=== PATIENT | male | born 1995 | race Two or more races ===

== ENCOUNTER 2020-08-14 22:11 | Inpatient (IN) | payer OTHER ==
[2020-08-14] MEDS: SODIUM CHLORIDE 1,905 ML IV ONE (22:50)
[2020-08-14 23:41] LABS: BASO % 0.4 % (0-2.0); EOS % 1.3 % (0-4.5); HEMOGLOBIN 15.3 GM/dL (11.7-16.9); LYMPH % 27.1 % (8-40); MCH 29.1 pg (25.7-33.7); MCHC 31.9 g/dl (32.0-35.9); MEAN CELL VOLUME 91.2 fl (80-96); MEAN PLT VOLUME 12.8 fl (7.5-11.1); NEUT % 61.2 % (42.8-82.8); PLATELET COUNT 235 K/MM3 (134-434); RBC 5.26 M/mm3 (4.00-5.60); RDW 14.3 % (11.9-15.9); WHITE BLOOD COUNT 11.4 K/mm3 (4.0-10.0)
[2020-08-14 23:45] LABS: VENOUS BASE EXCESS -0.7 mmol/L (-2-2); VENOUS O2 SATURATION 94.1 % (70-80); VENOUS PCO2 36.1 mmHg (38-52); VENOUS PH 7.425 (7.310-7.410)
[2020-08-14] MEDS ORDERED: LACTATED RINGERS SOLUTION 1000 ML INFUS.BAG IV ONE (23:45)
[2020-08-15 00:04] LABS: CHLORIDE 128 mmol/L (98-107); POTASSIUM 4.1 mmol/L (3.5-5.1)
[2020-08-15 00:06] LABS: ACTIVATED PTT 41.7 SECONDS (25.2-36.5); CALCIUM 9.7 mg/dL (8.5-10.1); INR 1.05 (0.83-1.09); PROTHROMBIN TIME (PATIENT) 12.9 SEC (9.7-13.0)
[2020-08-15 00:07] LABS: CO2 24 mmol/L (21-32); GLUCOSE,RANDOM 100 mg/dL (74-106)
[2020-08-15 00:10] LABS: CREATININE 1.3 mg/dL (0.55-1.3); SGOT/AST 41 U/L (15-37); SGPT/ALT 71 U/L (13-61)
[2020-08-15 00:11] LABS: BILIRUBIN,TOTAL 0.5 mg/dL (0.2-1); TOT PROT 8.7 g/dl (6.4-8.2)
[2020-08-15 00:12] LABS: ALK PHOS 137 U/L (45-117)
[2020-08-15 00:29] LABS: ANION GAP 9 MMOL/L (8-16)
[2020-08-15 00:40] LABS: SODIUM 161 mmol/L (136-145)
[2020-08-15] MEDS: SODIUM CHLORIDE 1,905 ML IV ONE (01:50)
[2020-08-15] MEDS ORDERED: LACTATED RINGERS SOLUTION 1,000 ML/1,000 ML INFUS.BAG IV SCH (03:15)
[2020-08-15] MEDS ORDERED: SODIUM CHLORIDE 0.45% 1,000 ML IV SCH (04:30)
[2020-08-15] MEDS ORDERED: clonazePAM 0.5 MG TABLET GT PRN (04:48)
[2020-08-15 07:42] LABS: POTASSIUM 3.8 mmol/L (3.5-5.1)
[2020-08-15 08:05] LABS: CALCIUM 9.6 mg/dL (8.5-10.1)
[2020-08-15 08:06] LABS: BLOOD UREA NITROGEN 60.7 mg/dL (7-18)
[2020-08-15 08:09] LABS: CREATININE 1.1 mg/dL (0.55-1.3)
[2020-08-15] MEDS ORDERED: BISACODYL 10 MG SUPP.RECT PR ONE (09:03)
[2020-08-15 09:57] LABS: PH,URINE >= 9.0 (5.0-8.0); URINE APPEARANCE Slightly Cloudy; URINE BILIRUBIN Negative (NEGATIVE); URINE COLOR Yellow; URINE GLUCOSE (UA) Negative (NEGATIVE); URINE KETONE Negative (NEGATIVE); URINE LEUK ESTERASE 3+ (NEGATIVE); URINE NITRITE Positive (NEGATIVE); URINE PROTEIN 3+ (NEGATIVE); URINE UROBILINOGEN 0.2 mg/dL (0.2-1.0)
[2020-08-15 10:11] LABS: EPI CELLS 18.1 /uL (0-25.1); HYALINE CASTS 1.15 /uL (0-3.1); URINE BACTERIA 243.7 /uL (0-1359); URINE RBC 23.8 /uL (0-23.9); URINE WBC 5.2 /uL (0-25.8)
[2020-08-15] MEDS ORDERED: DEXTROSE 5%-WATER - 1,000 ML IV SCH (11:00)
[2020-08-15] MEDS ORDERED: levETIRAcetam 500 MG/5 ML INJECTION VIAL IVPB ONE (11:05)
[2020-08-15] MEDS ORDERED: amLODIPine BESYLATE 5 MG TABLET (FP) ONE (11:06)
[2020-08-15] MEDS ORDERED: METOPROLOL TARTRATE 25 MG TABLET (FP) ONE (11:06)
[2020-08-15] MEDS ORDERED: BISACODYL 10 MG SUPP.RECT ONE (11:06)
[2020-08-15] MEDS: levETIRAcetam 500 MG/5 ML ORAL SOLUTION (UNIT-DOSE CUPS) PEG SCH ×2 (11:28→21:19)
[2020-08-15] MEDS: METOPROLOL TARTRATE 25 MG TABLET (FP) PEG SCH ×2 (11:28→21:19)
[2020-08-15] MEDS: amLODIPine BESYLATE 5 MG TABLET (FP) GT SCH (11:29)
[2020-08-15] MEDS ORDERED: PEG 3350/NA SULF BICARB CL/KCL 4000 ML SOLN.RECON GT ONE (13:00)
[2020-08-15] MEDS: SENNOSIDES 8.6MG TABLET (FP) PO SCH (21:19)
[2020-08-16] MEDS: DEXTROSE 5%-WATER - 1,000 ML IV SCH ×2 (01:53→22:50)
[2020-08-16 07:39] LABS: BASO % 0.3 % (0-2.0); EOS % 3.4 % (0-4.5); HEMATOCRIT 39.5 % (35.4-49); HEMOGLOBIN 13.1 GM/dL (11.7-16.9); LYMPH % 23.3 % (8-40); MCH 29.7 pg (25.7-33.7); MCHC 33.1 g/dl (32.0-35.9); MEAN CELL VOLUME 89.7 fl (80-96); MEAN PLT VOLUME 12.5 fl (7.5-11.1); MONO % 6.5 % (3.8-10.2); NEUT % 66.5 % (42.8-82.8); PLATELET COUNT 168 K/MM3 (134-434); RDW 13.8 % (11.9-15.9); WHITE BLOOD COUNT 13.4 K/mm3 (4.0-10.0)
[2020-08-16 08:01] LABS: POTASSIUM 3.4 mmol/L (3.5-5.1)
[2020-08-16] MEDS ORDERED: PT OWN MED DRAWER 7, Y5N ONE ×3 (08:19→22:38)
[2020-08-16 08:29] LABS: ALBUMIN 3.4 g/dl (3.4-5.0); BILIRUBIN,TOTAL 1.4 mg/dL (0.2-1); BLOOD UREA NITROGEN 38.8 mg/dL (7-18); CALCIUM 8.8 mg/dL (8.5-10.1); CREATININE 0.9 mg/dL (0.55-1.3); MAGNESIUM 2.3 mg/dL (1.8-2.4); PHOSPHOROUS 3.1 mg/dL (2.5-4.9); TOT PROT 7.4 g/dl (6.4-8.2)
[2020-08-16] MEDS ORDERED: POTASSIUM CHLORIDE ORAL LIQUID 20 MEQ/15 ML GT ONE (08:36)
[2020-08-16] MEDS: amLODIPine BESYLATE 5 MG TABLET (FP) GT SCH (09:28)
[2020-08-16] MEDS: levETIRAcetam 500 MG/5 ML ORAL SOLUTION (UNIT-DOSE CUPS) PEG SCH ×2 (09:28→22:50)
[2020-08-16] MEDS: METOPROLOL TARTRATE 25 MG TABLET (FP) PEG SCH ×2 (09:28→22:50)
[2020-08-16] MEDS: SENNOSIDES 8.6MG TABLET (FP) PO SCH (22:49)
[2020-08-17 08:35] LABS: HEMATOCRIT 38.6 % (35.4-49); HEMOGLOBIN 13.2 GM/dL (11.7-16.9); MCH 29.6 pg (25.7-33.7); MCHC 34.2 g/dl (32.0-35.9); MEAN CELL VOLUME 86.5 fl (80-96); MEAN PLT VOLUME 12.2 fl (7.5-11.1); PLATELET COUNT 211 K/MM3 (134-434); RBC 4.46 M/mm3 (4.00-5.60); RDW 13.4 % (11.9-15.9); WHITE BLOOD COUNT 13.4 K/mm3 (4.0-10.0)
[2020-08-17 08:37] LABS: POTASSIUM 3.7 mmol/L (3.5-5.1)
[2020-08-17 08:44] LABS: CALCIUM 8.7 mg/dL (8.5-10.1)
[2020-08-17 08:45] LABS: BLOOD UREA NITROGEN 21.6 mg/dL (7-18)
[2020-08-17 08:48] LABS: CREATININE 0.7 mg/dL (0.55-1.3)
[2020-08-17] MEDS ORDERED: PT OWN MED DRAWER 7, Y5N ONE (09:30)
[2020-08-17] MEDS: amLODIPine BESYLATE 5 MG TABLET (FP) GT SCH (10:11)
[2020-08-17] MEDS: levETIRAcetam 500 MG/5 ML ORAL SOLUTION (UNIT-DOSE CUPS) PEG SCH ×2 (10:11→23:25)
[2020-08-17] MEDS: METOPROLOL TARTRATE 25 MG TABLET (FP) PEG SCH ×2 (10:11→22:34)
[2020-08-17] MEDS ORDERED: DEXTROSE 5%-WATER - 1,000 ML IV SCH (11:27)
[2020-08-17 15:19] LABS: EPI CELLS 12 /uL (0-25.1); HYALINE CASTS 0 /uL (0-3.1); URINE APPEARANCE CLEAR; URINE BACTERIA 8249 /uL (0-1359); URINE BILIRUBIN NEGATIVE (NEGATIVE); URINE COLOR YELLOW; URINE GLUCOSE (UA) NEGATIVE (NEGATIVE); URINE KETONE NEGATIVE (NEGATIVE); URINE LEUK ESTERASE 3+ (NEGATIVE); URINE NITRITE NEGATIVE (NEGATIVE); URINE PROTEIN NEGATIVE (NEGATIVE); URINE RBC 2 /uL (0-23.9); URINE WBC 21 /uL (0-25.8)
[2020-08-17] MEDS: SENNOSIDES 8.6MG TABLET (FP) PO SCH (22:34)
[2020-08-18] MEDS: DEXTROSE 5%-WATER - 1,000 ML IV SCH (05:47)
[2020-08-18 07:30] LABS: HEMATOCRIT 35.9 % (35.4-49); HEMOGLOBIN 12.4 GM/dL (11.7-16.9); MCH 29.8 pg (25.7-33.7); MCHC 34.5 g/dl (32.0-35.9); MEAN CELL VOLUME 86.2 fl (80-96); MEAN PLT VOLUME 12.6 fl (7.5-11.1); RBC 4.17 M/mm3 (4.00-5.60); RDW 13.6 % (11.9-15.9); WHITE BLOOD COUNT 10.7 K/mm3 (4.0-10.0)
[2020-08-18 07:58] LABS: ALBUMIN 3.1 g/dl (3.4-5.0); BLOOD UREA NITROGEN 19.8 mg/dL (7-18); CALCIUM 8.8 mg/dL (8.5-10.1)
[2020-08-18 08:02] LABS: CREATININE 0.7 mg/dL (0.55-1.3)
[2020-08-18 08:03] LABS: BILIRUBIN,TOTAL 0.6 mg/dL (0.2-1); TOT PROT 6.7 g/dl (6.4-8.2)
[2020-08-18] MEDS ORDERED: PT OWN MED DRAWER 7, Y5N ONE ×3 (09:54→21:49)
[2020-08-18 10:13] LABS: PLATELET COUNT 151 K/MM3 (134-434)
[2020-08-18] MEDS: levETIRAcetam 500 MG/5 ML ORAL SOLUTION (UNIT-DOSE CUPS) PEG SCH (11:30)
[2020-08-18] MEDS: ENOXAPARIN NA (PORCINE) 40 MG/0.4 ML DISP.SYRIN SQ SCH (11:30)
[2020-08-18] MEDS: METOPROLOL TARTRATE 25 MG TABLET (FP) PEG SCH ×2 (11:30→22:00)
[2020-08-18] MEDS: amLODIPine BESYLATE 5 MG TABLET (FP) GT SCH (11:30)
[2020-08-18] MEDS ORDERED: PATIENT'S OWN MEDICATION (NON-FORMULARY) (Senna Leaf Extract [Senna] 176 MG/5 ML Syrup) PO SCH (15:45)
[2020-08-18] MEDS ORDERED: AMPICILLIN NA/SULBACTAM NA 1.5 GM VIAL ONE ×2 (16:12→21:50)
[2020-08-18] MEDS ORDERED: SODIUM CHLORIDE 100 ML IVPB ONE ×2 (16:12→21:50)
[2020-08-18] MEDS: LACTULOSE 20 GM/30 ML UDC (FOR ORAL USE ONLY) GT SCH (17:31)
[2020-08-18] MEDS: AMPICILLIN NA/SULBACTAM NA 1.5 GM in SODIUM CHLORIDE 100 ML IVPB SCH ×2 (17:31→22:00)
[2020-08-18] MEDS: clonazePAM 0.5 MG TABLET GT SCH (22:00)
[2020-08-18] MEDS: Lacosamide 50 MG/5 ML ORAL SOLUTION UNIT CUPS GT SCH (22:00)
[2020-08-18] MEDS ORDERED: levETIRAcetam 500 MG/5 ML ORAL SOLUTION (UNIT-DOSE CUPS) PO SCH (22:00)
[2020-08-18] MEDS: NYSTATIN POWDER 100,000 UNITS/GM - 15 GM TOPICAL POWDER TP SCH (22:00)
[2020-08-18] MEDS: SENNOSIDES 8.8 MG/5 ML BULK BOTTLE GT SCH (22:00)
[2020-08-18] MEDS: FAMOTIDINE 40 MG/5 ML ORAL SUSPENSION NGT SCH (22:00)
[2020-08-18] MEDS: levETIRAcetam 500 MG/5 ML ORAL SOLUTION (UNIT-DOSE CUPS) PO SCH (22:00)
[2020-08-19] MEDS ORDERED: SODIUM CHLORIDE 100 ML IVPB ONE ×3 (01:56→13:22)
[2020-08-19] MEDS ORDERED: AMPICILLIN NA/SULBACTAM NA 1.5 GM VIAL ONE ×3 (01:56→13:21)
[2020-08-19] MEDS: AMPICILLIN NA/SULBACTAM NA 1.5 GM in SODIUM CHLORIDE 100 ML IVPB SCH ×3 (02:32→14:29)
[2020-08-19 08:48] LABS: BASO % 0.7 % (0-2.0); EOS % 4.8 % (0-4.5); HEMATOCRIT 40.9 % (35.4-49); LYMPH % 35.6 % (8-40); MCH 29.9 pg (25.7-33.7); MCHC 34.2 g/dl (32.0-35.9); MEAN CELL VOLUME 87.7 fl (80-96); MEAN PLT VOLUME 12.7 fl (7.5-11.1); MONO % 7.4 % (3.8-10.2); NEUT % 51.5 % (42.8-82.8); PLATELET COUNT 151 K/MM3 (134-434); RBC 4.67 M/mm3 (4.00-5.60); WHITE BLOOD COUNT 7.9 K/mm3 (4.0-10.0)
[2020-08-19 08:58] LABS: POTASSIUM 4.1 mmol/L (3.5-5.1)
[2020-08-19 09:13] LABS: BILIRUBIN,TOTAL 0.5 mg/dL (0.2-1)
[2020-08-19 09:18] LABS: CREATININE 0.7 mg/dL (0.55-1.3)
[2020-08-19 09:22] LABS: CALCIUM 9.2 mg/dL (8.5-10.1); MAGNESIUM 2.5 mg/dL (1.8-2.4)
[2020-08-19 09:25] LABS: ALBUMIN 3.5 g/dl (3.4-5.0); PHOSPHOROUS 2.5 mg/dL (2.5-4.9)
[2020-08-19 09:27] LABS: TOT PROT 7.9 g/dl (6.4-8.2)
[2020-08-19] MEDS: LACTULOSE 20 GM/30 ML UDC (FOR ORAL USE ONLY) GT SCH (10:00)
[2020-08-19] MEDS: Lacosamide 50 MG/5 ML ORAL SOLUTION UNIT CUPS GT SCH ×2 (10:01→22:12)
[2020-08-19] MEDS: METOPROLOL TARTRATE 25 MG TABLET (FP) PEG SCH ×2 (10:02→22:11)
[2020-08-19] MEDS: ENOXAPARIN NA (PORCINE) 40 MG/0.4 ML DISP.SYRIN SQ SCH (10:02)
[2020-08-19] MEDS: clonazePAM 0.5 MG TABLET GT SCH ×2 (10:02→22:11)
[2020-08-19] MEDS: amLODIPine BESYLATE 5 MG TABLET (FP) GT SCH (10:02)
[2020-08-19] MEDS: PYRIDOXINE HCL (B-6) 50 MG TABLET (FP) GT SCH (10:02)
[2020-08-19] MEDS: NYSTATIN POWDER 100,000 UNITS/GM - 15 GM TOPICAL POWDER TP SCH ×2 (10:03→22:12)
[2020-08-19] MEDS: FAMOTIDINE 40 MG/5 ML ORAL SUSPENSION NGT SCH ×2 (10:03→22:12)
[2020-08-19] MEDS: levETIRAcetam 500 MG/5 ML ORAL SOLUTION (UNIT-DOSE CUPS) PO SCH ×2 (10:03→22:11)
[2020-08-19] MEDS ORDERED: SODIUM PHOSPHATE - 15 MM in SODIUM CHLORIDE 250 ML IVPB ONE (13:00)
[2020-08-19] MEDS: POLYETHYLENE GLYCOL 3350 119 GM BTL PO SCH ×2 (14:58→22:12)
[2020-08-19] MEDS ORDERED: PIPERACILLIN/TAZOBACTAM 3.375 GM VIAL IVPB ONE ×2 (15:51→17:23)
[2020-08-19] MEDS ORDERED: DEXTROSE 5%-WATER - 50 ML IVPB ONE ×2 (15:52→17:23)
[2020-08-19] MEDS: PIPERACILLIN/TAZOB 3.375 GM 3.375 GM in DEXTROSE 5%-WATER - 50 ML IVPB SCH ×2 (16:12→18:29)
[2020-08-19] MEDS: SENNOSIDES 8.8 MG/5 ML BULK BOTTLE GT SCH (22:12)
[2020-08-20] MEDS ORDERED: DEXTROSE 5%-WATER - 50 ML IVPB ONE ×3 (03:20→17:21)
[2020-08-20] MEDS ORDERED: PIPERACILLIN/TAZOBACTAM 3.375 GM VIAL IVPB ONE ×3 (03:20→17:21)
[2020-08-20] MEDS: PIPERACILLIN/TAZOB 3.375 GM 3.375 GM in DEXTROSE 5%-WATER - 50 ML IVPB SCH ×3 (03:53→17:42)
[2020-08-20] MEDS: POLYETHYLENE GLYCOL 3350 119 GM BTL PO SCH ×3 (05:54→21:05)
[2020-08-20] MEDS ORDERED: PT OWN MED DRAWER 7, Y5N ONE ×2 (08:43→20:43)
[2020-08-20] MEDS: PYRIDOXINE HCL (B-6) 50 MG TABLET (FP) GT SCH (09:57)
[2020-08-20] MEDS: ENOXAPARIN NA (PORCINE) 40 MG/0.4 ML DISP.SYRIN SQ SCH (09:57)
[2020-08-20] MEDS: Lacosamide 50 MG/5 ML ORAL SOLUTION UNIT CUPS GT SCH ×2 (09:57→21:04)
[2020-08-20] MEDS: METOPROLOL TARTRATE 25 MG TABLET (FP) PEG SCH ×2 (09:58→21:05)
[2020-08-20] MEDS: NYSTATIN POWDER 100,000 UNITS/GM - 15 GM TOPICAL POWDER TP SCH ×2 (09:58→21:05)
[2020-08-20] MEDS: FAMOTIDINE 40 MG/5 ML ORAL SUSPENSION NGT SCH ×2 (09:58→21:05)
[2020-08-20] MEDS: clonazePAM 0.5 MG TABLET GT SCH ×2 (09:58→21:05)
[2020-08-20] MEDS: amLODIPine BESYLATE 5 MG TABLET (FP) GT SCH (09:58)
[2020-08-20] MEDS: levETIRAcetam 500 MG/5 ML ORAL SOLUTION (UNIT-DOSE CUPS) PO SCH ×2 (09:59→21:05)
[2020-08-20 12:21] LABS: BASO % 0.4 % (0-2.0); EOS % 4.7 % (0-4.5); HEMATOCRIT 37.7 % (35.4-49); LYMPH % 25.9 % (8-40); MCH 29.6 pg (25.7-33.7); MCHC 34.5 g/dl (32.0-35.9); MEAN PLT VOLUME 12.3 fl (7.5-11.1); MONO % 6.6 % (3.8-10.2); NEUT % 62.4 % (42.8-82.8); PLATELET COUNT 178 K/MM3 (134-434); RBC 4.39 M/mm3 (4.00-5.60); RDW 13.8 % (11.9-15.9); WHITE BLOOD COUNT 9.4 K/mm3 (4.0-10.0)
[2020-08-20 12:56] LABS: POTASSIUM 4.1 mmol/L (3.5-5.1)
[2020-08-20 12:57] LABS: CALCIUM 9.1 mg/dL (8.5-10.1)
[2020-08-20 12:58] LABS: BLOOD UREA NITROGEN 18.7 mg/dL (7-18); MAGNESIUM 2.3 mg/dL (1.8-2.4)
[2020-08-20 13:00] LABS: PHOSPHOROUS 3.5 mg/dL (2.5-4.9)
[2020-08-20 13:01] LABS: CREATININE 0.8 mg/dL (0.55-1.3)
[2020-08-20 13:02] LABS: BILIRUBIN,TOTAL 0.4 mg/dL (0.2-1); TOT PROT 6.9 g/dl (6.4-8.2)
[2020-08-20 13:40] VITALS: BMI 26.9
[2020-08-20 14:30] LABS: PLATELET ESTIMATE NORMAL
[2020-08-20] MEDS: SENNOSIDES 8.8 MG/5 ML BULK BOTTLE GT SCH (21:06)
[2020-08-21] MEDS ORDERED: PIPERACILLIN/TAZOBACTAM 3.375 GM VIAL IVPB ONE ×3 (01:01→17:24)
[2020-08-21] MEDS ORDERED: DEXTROSE 5%-WATER - 50 ML IVPB ONE ×3 (01:02→17:24)
[2020-08-21] MEDS: PIPERACILLIN/TAZOB 3.375 GM 3.375 GM in DEXTROSE 5%-WATER - 50 ML IVPB SCH ×3 (01:08→17:28)
[2020-08-21] MEDS: POLYETHYLENE GLYCOL 3350 119 GM BTL PO SCH ×3 (05:12→22:54)
[2020-08-21] MEDS ORDERED: PT OWN MED DRAWER 7, Y5N ONE ×6 (05:33→22:41)
[2020-08-21 08:53] LABS: BASO % 0.5 % (0-2.0); EOS % 5.2 % (0-4.5); HEMATOCRIT 36.9 % (35.4-49); HEMOGLOBIN 12.8 GM/dL (11.7-16.9); LYMPH % 34.7 % (8-40); MCH 29.9 pg (25.7-33.7); MCHC 34.8 g/dl (32.0-35.9); MEAN CELL VOLUME 86.1 fl (80-96); MEAN PLT VOLUME 12.4 fl (7.5-11.1); NEUT % 52.6 % (42.8-82.8); PLATELET COUNT 165 K/MM3 (134-434); RBC 4.28 M/mm3 (4.00-5.60); RDW 13.6 % (11.9-15.9); WHITE BLOOD COUNT 8.5 K/mm3 (4.0-10.0)
[2020-08-21 09:15] LABS: POTASSIUM 3.6 mmol/L (3.5-5.1)
[2020-08-21 09:18] LABS: CALCIUM 8.8 mg/dL (8.5-10.1)
[2020-08-21 09:19] LABS: ALBUMIN 3.1 g/dl (3.4-5.0); BLOOD UREA NITROGEN 16.8 mg/dL (7-18); MAGNESIUM 2.2 mg/dL (1.8-2.4)
[2020-08-21 09:22] LABS: CREATININE 0.8 mg/dL (0.55-1.3); PHOSPHOROUS 3.6 mg/dL (2.5-4.9)
[2020-08-21 09:23] LABS: TOT PROT 6.8 g/dl (6.4-8.2)
[2020-08-21 09:28] LABS: BILIRUBIN,TOTAL 0.6 mg/dL (0.2-1)
[2020-08-21] MEDS: Lacosamide 50 MG/5 ML ORAL SOLUTION UNIT CUPS GT SCH ×2 (11:41→22:53)
[2020-08-21] MEDS: clonazePAM 0.5 MG TABLET GT SCH ×2 (11:41→22:54)
[2020-08-21] MEDS: PYRIDOXINE HCL (B-6) 50 MG TABLET (FP) GT SCH (11:42)
[2020-08-21] MEDS: METOPROLOL TARTRATE 25 MG TABLET (FP) PEG SCH ×2 (11:42→22:54)
[2020-08-21] MEDS: FAMOTIDINE 40 MG/5 ML ORAL SUSPENSION NGT SCH ×2 (11:42→22:53)
[2020-08-21] MEDS: amLODIPine BESYLATE 5 MG TABLET (FP) GT SCH (11:42)
[2020-08-21] MEDS: NYSTATIN POWDER 100,000 UNITS/GM - 15 GM TOPICAL POWDER TP SCH ×2 (11:42→22:54)
[2020-08-21] MEDS: levETIRAcetam 500 MG/5 ML ORAL SOLUTION (UNIT-DOSE CUPS) PO SCH ×2 (11:43→22:54)
[2020-08-21] MEDS: ENOXAPARIN NA (PORCINE) 40 MG/0.4 ML DISP.SYRIN SQ SCH (14:32)
[2020-08-21] MEDS ORDERED: POTASSIUM CHLORIDE TABS 20 MEQ TABLET.ER (FP) PO ONE (16:06)
[2020-08-21] MEDS ORDERED: POTASSIUM CHLORIDE ORAL LIQUID 20 MEQ/15 ML PO ONE (17:30)
[2020-08-21] MEDS: SENNOSIDES 8.8 MG/5 ML BULK BOTTLE GT SCH (22:53)
[2020-08-22] MEDS ORDERED: PIPERACILLIN/TAZOBACTAM 3.375 GM VIAL IVPB ONE ×3 (02:41→17:46)
[2020-08-22] MEDS: PIPERACILLIN/TAZOB 3.375 GM 3.375 GM in DEXTROSE 5%-WATER - 50 ML IVPB SCH ×3 (03:22→17:50)
[2020-08-22] MEDS: POLYETHYLENE GLYCOL 3350 119 GM BTL PO SCH ×2 (05:55→15:06)
[2020-08-22 08:31] LABS: BASO % 0.4 % (0-2.0); EOS % 4.8 % (0-4.5); HEMATOCRIT 38.5 % (35.4-49); HEMOGLOBIN 13.6 GM/dL (11.7-16.9); LYMPH % 32.3 % (8-40); MCHC 35.2 g/dl (32.0-35.9); MEAN CELL VOLUME 85.3 fl (80-96); MEAN PLT VOLUME 11.6 fl (7.5-11.1); MONO % 7.1 % (3.8-10.2); NEUT % 55.4 % (42.8-82.8); PLATELET COUNT 185 K/MM3 (134-434); RBC 4.52 M/mm3 (4.00-5.60); RDW 13.8 % (11.9-15.9); WHITE BLOOD COUNT 8.1 K/mm3 (4.0-10.0)
[2020-08-22 08:52] LABS: POTASSIUM 3.8 mmol/L (3.5-5.1)
[2020-08-22 08:58] LABS: PHOSPHOROUS 4.3 mg/dL (2.5-4.9)
[2020-08-22 09:01] LABS: CALCIUM 9.2 mg/dL (8.5-10.1)
[2020-08-22 09:02] LABS: BLOOD UREA NITROGEN 15.9 mg/dL (7-18); MAGNESIUM 2.3 mg/dL (1.8-2.4)
[2020-08-22 09:04] LABS: CREATININE 0.8 mg/dL (0.55-1.3)
[2020-08-22 09:06] LABS: BILIRUBIN,TOTAL 0.4 mg/dL (0.2-1); TOT PROT 6.8 g/dl (6.4-8.2)
[2020-08-22] MEDS ORDERED: DEXTROSE 5%-WATER - 50 ML IVPB ONE ×2 (10:17→17:46)
[2020-08-22] MEDS ORDERED: PT OWN MED DRAWER 7, Y5N ONE (10:18)
[2020-08-22] MEDS: clonazePAM 0.5 MG TABLET GT SCH (11:33)
[2020-08-22] MEDS: PYRIDOXINE HCL (B-6) 50 MG TABLET (FP) GT SCH (11:34)
[2020-08-22] MEDS: NYSTATIN POWDER 100,000 UNITS/GM - 15 GM TOPICAL POWDER TP SCH (11:34)
[2020-08-22] MEDS: ENOXAPARIN NA (PORCINE) 40 MG/0.4 ML DISP.SYRIN SQ SCH (11:34)
[2020-08-22] MEDS: amLODIPine BESYLATE 5 MG TABLET (FP) GT SCH (11:34)
[2020-08-22] MEDS: METOPROLOL TARTRATE 25 MG TABLET (FP) PEG SCH (11:34)
[2020-08-22] MEDS: Lacosamide 50 MG/5 ML ORAL SOLUTION UNIT CUPS GT SCH (11:35)
[2020-08-22] MEDS: levETIRAcetam 500 MG/5 ML ORAL SOLUTION (UNIT-DOSE CUPS) PO SCH (11:35)
[2020-08-22] MEDS: FAMOTIDINE 40 MG/5 ML ORAL SUSPENSION NGT SCH (11:35)
[2020-08-22 19:52] VITALS: BP 124/56; PULSE 68; TEMP 98.6
== END 2020-08-22 19:56 | disposition home or self-care (01) | DRG 640 ==
LOC: JER 22:11 → JERBED 08-15 01:25 → J4W 08-15 13:09
PROVIDERS: ADMIT Hospitalist; ATTEND Internal Medicine
DX: E87.0 Hyperosmolality and hypernatremia (principal); U07.1 COVID-19; N39.0 Urinary tract infection, site not specified; G80.2 Spastic hemiplegic cerebral palsy; J96.10 Chronic respiratory failure, unspecified whether with hypoxia or hypercapnia; Z16.12 Extended spectrum beta lactamase (ESBL) resistance; I10 Essential (primary) hypertension; G40.909 Epilepsy, unspecified, not intractable, without status epilepticus; Z93.1 Gastrostomy status; K56.41 Fecal impaction; Z93.0 Tracheostomy status
CPT/HCPCS: 36415; 70450-TC; 71250-TC; 74018-TC-FY; 74176-TC; 80048; 80053; 80177; 81003; 82550; 82553; 82728; 82803; 83605; 83615; 83735; 84100; 84295; 84443; 84484; 85025; 85027; 85379; 85610; 85730; 86140; 86769; 86850; 86900; 86901; 87040; 87086; 87186; 93005; 93010; 99285-25; C9803; U0003